=== PATIENT | male | born 1935 | race Caucasian/White ===

== ENCOUNTER 2016-04-16 19:34 | Emergency (ER) | payer MEDICARE, OTHER ==
--- NOTE | 2016-04-16 22:42 | ER ---
ADMIT: 04/16/2016 RM/LOC: ER [facility] MR#: [id number] [id number] [address] [place] [address] Emergency Room Report SEX: M AGE: 80 : 1935 DATE: 04/16/2016 The patient is a 80-year-old male working in his garage sustained left thumb laceration with hacksaw. No loss of function. Last tetanus in 2009. Exam remarkable for nontoxic, afebrile male with 3 cm laceration dorsal lateral aspect of left thumb. Full range of motion without deformity. Neurovascular intact. No foreign body identified. Wound anesthetized with Xylocaine 1%, thoroughly irrigated, scrubbed and closed with 4-0 Prolene x3, bacitracin, and Band-Aid. Keep clean and dry. Triple antibiotic daily. Follow up Dr. Woods 7 to 10 days suture removal. Peewee Starks MD/ steff JOB #: [id number] CC: Peewee Starks MD, Attending Physician Roger Woods DO, Family Physician Roger Woods DO
== END 2016-04-16 20:45 | disposition home or self-care (01) ==
LOC: ER 19:34
PROC: 0HQGXZZ Repair Left Hand Skin, External Approach (ICD-10-PCS; principal; 2016-04-16)
DX: S61.012A Laceration without foreign body of left thumb without damage to nail, initial encounter (principal); I10 Essential (primary) hypertension; E11.9 Type 2 diabetes mellitus without complications; G47.33 Obstructive sleep apnea (adult) (pediatric); Z85.46 Personal history of malignant neoplasm of prostate; Z98.890 Other specified postprocedural states; W27.8XXA Contact with other nonpowered hand tool, initial encounter; Y92.009 Unspecified place in unspecified non-institutional (private) residence as the place of occurrence of the external cause